=== PATIENT | male | born 1975 | race Native Hawaiian/Other Pacific Islander ===

== ENCOUNTER 2017-02-13 02:02 | Emergency (ER) | payer SELFPAY ==
--- NOTE | 2017-02-13 05:52 | Emergency Department Report ---
ED General Adult HPI - General Chief complaint: Skin Rash Stated complaint: RASH TO GROIN Time Seen by Provider: 02/13/17 04:04 Source: patient Mode of arrival: Ambulatory Limitations: No Limitations - History of Present Illness Initial comments: 41 yo male who comes in today due to a generalized rash in his groin and scrotal area times 10 years. He states that he has been treated for this in the past with creams, however it always returns. He's requesting antibiotics and a cream to treat his complaint. -: year(s) (10) Location: genitals Radiation: non-radiation Quality: burning Consistency: intermittent Improves with: medication Worsens with: none Treatments Prior to Arrival: none - Related Data Allergies Allergy/AdvReac Type Severity Reaction Status Date / Time No Known Allergies Allergy Unverified 02/13/17 02:44 ED Review of Systems ROS: Stated complaint: RASH TO GROIN Other details as noted in HPI Constitutional: denies: chills, fever Eyes: denies: eye pain, eye discharge, vision change ENT: denies: ear pain, throat pain Respiratory: denies: cough, shortness of breath, wheezing Cardiovascular: denies: chest pain, palpitations Endocrine: no symptoms reported Gastrointestinal: denies: abdominal pain, nausea, diarrhea Genitourinary: as per HPI Musculoskeletal: denies: back pain, joint swelling, arthralgia Skin: as per HPI Neurological: denies: headache, weakness, paresthesias Psychiatric: denies: anxiety, depression ED Past Medical Hx - Past Medical History Previous Medical History?: No - Surgical History Past Surgical History?: No - Social History Smoking Status: Never Smoker Substance Use Type: None ED Physical Exam - General Limitations: No Limitations General appearance: alert, in no apparent distress - Head Head exam: Present: atraumatic, normocephalic - Eye Eye exam: Present: normal appearance - ENT ENT exam: Present: mucous membranes moist - Respiratory Respiratory exam: Present: normal lung sounds bilaterally. Absent: respiratory distress - Cardiovascular Cardiovascular Exam: Present: regular rate, normal rhythm. Absent: systolic murmur, diastolic murmur, rubs, gallop - exam: Present: normal inspection - Back Exam Back exam: Present: normal inspection - Neurological Exam Neurological exam: Present: alert, oriented X3 - Psychiatric Psychiatric exam: Present: normal affect, normal mood - Skin Skin exam: Present: warm, dry, intact, normal color. Absent: rash ED Course Vital Signs 02/13/17 02:44 Temperature 98.4 F Pulse Rate 70 Respiratory 18 Rate Blood Pressure 130/78 O2 Sat by Pulse 99 Oximetry - Reevaluation(s) Reevaluation #1: 02/13/17 05:52 The patient is requesting antibiotics and a cream for a rash present in his groin and genital area. No rash noted on exam. Critical care attestation.: If time is entered above; I have spent that time in minutes in the direct care of this critically ill patient, excluding procedure time. ED Disposition Clinical Impression: Rash Disposition: DC-01 TO HOME OR SELFCARE Is pt being admited?: No Does the pt Need Aspirin: No Condition: Stable Instructions: Acute Rash (ED) Additional Instructions: Upon exam, there wasn't a rash noted on exam. Please follow up with your provider on discharge. Referrals: PRIMARY CARE [Primary Care Provider] - 3-5 Days Time of Disposition: 05:55
[2017-02-13 06:03] VITALS: BP 131/80
== END 2017-02-13 06:03 | disposition home or self-care (01) ==
LOC: ED 02:02
DX: R21 Rash and other nonspecific skin eruption (principal)
CPT/HCPCS: 99282

== ENCOUNTER 2018-01-12 08:30 | Emergency (ER) | payer SELFPAY ==
[2018-01-12 09:17] VITALS: BP 103/61
--- NOTE | 2018-01-12 09:38 | Emergency Department Report ---
Blank Doc - Documentation Documentation: Patient is a 6-year-old male who is complaining of multiple complaints at this time. Patient states he's had a headache for approximately 1 year. Patient also states he has itchiness and feels as though answer crawling on his skin it feels as though he can feel his blood pumping through his veins. Patient occasionally has to take very deep breath as well as. The patient is denying any chest pain or shortness of breath. Patient does seem quite anxious during the history and physical. Patient likely has anxiety and paranoia that something is on his scan however the cause of his symptoms we will establish a baseline that there is no emergent condition present. Patient will have a CMP and CBC and a head CT done here in the emergency department.
[2018-01-12 09:59] LABS: Basophils # (Auto) 0.1 K/mm3 (0.0-0.1); Basophils % (Auto) 1.4 % (0.0-1.8); Eosinophils # (Auto) 0.3 K/mm3 (0.0-0.4); Eosinophils % (Auto) 4.2 % (0.0-4.3); Hematocrit 44.1 % (35.5-45.6); Hemoglobin 15.2 gm/dl (11.8-15.2); Lymphocytes # (Auto) 2.9 K/mm3 (1.2-5.4); Lymphocytes % (Auto) 38.2 % (13.4-35.0); Mean Corpuscular HGB Conc 35 % (32-34); Mean Corpuscular Hemoglobin 31 pg (28-32); Mean Corpuscular Volume 88 fl (84-94); Monocytes # (Auto) 0.7 K/mm3 (0.0-0.8); Monocytes % (Auto) 9.3 % (0.0-7.3); Platelet Count 243 K/mm3 (140-440); Red Blood Count 4.99 M/mm3 (3.65-5.03); Red Cell Distribution Width 13.3 % (13.2-15.2)
--- NOTE | 2018-01-12 10:19 | Cat Scan Report ---
CT HEAD WITHOUT CONTRAST: HISTORY: Headaches. TECHNIQUE: Sequential 2.5mm CT images. COMPARISON: none. FINDINGS: Cerebral Parenchyma: There are focal areas of cortical encephalomalacia in the right anterior temporal lobe, right subfrontal lobe, and anterior frontal lobes. This may be posttraumatic in nature, correlate with the patient's history. The remaining brain parenchyma demonstrates normal attenuation. Cerebellum: Within normal limits. Brainstem: Within normal limits. Ventricles: Normal. Sella: Normal. Extra-axial spaces: Normal. Basal Cisterns: Normal. Intracranial Hemorrhage: None. Midline Shift: None. Calvarium: Normal. Sinuses: Normal. Mastoid Air Cells: Normal. Visualized Orbits: Normal. IMPRESSION: Focal areas of cortical encephalomalacia are identified in the right anterior temporal lobe and both frontal lobes suggesting previous traumatic injury. No acute intracranial process is identified.
[2018-01-12 10:21] LABS: Alanine Aminotransferase 154 units/L (7-56); Albumin 4.5 g/dL (3.9-5); BUN/Creatinine Ratio 24; Blood Urea Nitrogen 19 mg/dL (9-20); Calcium 9.3 mg/dL (8.4-10.2); Hemolysis Index 55
--- NOTE | 2018-01-12 10:33 | Emergency Department Report ---
ED General Adult HPI - General Chief complaint: Headache Stated complaint: HIGH BREATHING Time Seen by Provider: 01/12/18 09:35 Source: patient, family Mode of arrival: Ambulatory Limitations: No Limitations - History of Present Illness Initial comments: This is a 42-year-old male here reports that he has headache that comes and goes and been ongoing for about a year. He said he has intermittent heavy breathing for about a year. Patient reports fungal infection to both feet which is causing the symptoms. He reports that he has had pain 4/10 that is achy and reports some blurred vision, dizziness and fatigue. Denies any nausea or vomiting. Denies any abdominal back pain. Denies any urinary burning, frequency or urgency. Pain is intermittent. He is not having any back pain or dizziness MD Complaint: complaint, multiple Onset/Timin -: year(s) Location: head, back Radiation: non-radiation Severity scale (0 -10): 4 Quality: aching Consistency: intermittent Improves with: none Worsens with: none Associated Symptoms: headaches, rash (fungal infection of his feet), shortness of breath, weakness. denies: confusion, chest pain, cough, diaphoresis, fever/ chills, loss of appetite, malaise, nausea/vomiting, seizure, syncope Treatments Prior to Arrival: none - Related Data Previous Rx's Medication Instructions Recorded Last Taken Type Acetaminophen [Tylenol] 500 mg PO Q12H #12 tablet 01/12/18 Unknown Rx Ketoconazole 2% [Nizoral] 15 gm TP Q12H 7 Days #1 tube 01/12/18 Unknown Rx Allergies Allergy/AdvReac Type Severity Reaction Status Date / Time No Known Allergies Allergy Unverified 02/13/17 02:44 ED Review of Systems ROS: Stated complaint: HIGH BREATHING Other details as noted in HPI Constitutional: denies: chills, fever Eyes: denies: eye pain, eye discharge, vision change ENT: denies: ear pain, throat pain, hearing loss, epistaxis, congestion Respiratory: denies: cough, shortness of breath, SOB with exertion, SOB at rest , stridor, wheezing Cardiovascular: denies: chest pain, palpitations, edema, paroxysmal nocturnal dyspnea Gastrointestinal: denies: abdominal pain, nausea, vomiting, diarrhea, constipation, hematemesis, melena, hematochezia Genitourinary: denies: urgency, dysuria, hematuria, testicular pain, testicular mass Musculoskeletal: denies: back pain, joint swelling, arthralgia Skin: rash. 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 Absent: tenderness, CVA tenderness (R), muscle spasm , paraspinal tenderness, vertebral tenderness, rash noted - Neurological Exam Neurological exam: Present: alert, oriented X3, normal gait, reflexes normal. Absent: motor sensory deficit - Psychiatric Psychiatric exam: Present: normal affect, normal mood - Skin Skin exam: Present: warm, dry, normal color, rash - Expanded Skin Exam Expanded Type of lesion: Present: rash, other (fungal appearing rash) Distribution of rash: other (both feet) Description of rash: Present: other (dry scaly and moist between toes and to some toes on both feet.) ED Course Vital Signs 01/12/18 09:11 Temperature 98.6 F Pulse Rate 65 Respiratory 18 Rate Blood Pressure 103/61 O2 Sat by Pulse 95 Oximetry ED Medical Decision Making - Lab Data Result diagrams: 01/12/18 09:41 01/12/18 09:41 Lab Results 01/12/18 01/12/18 Range/Units 09:41 09:41 WBC 7.5 (4.5-11.0) K/mm3 RBC 4.99 (3.65-5.03) M/mm3 Hgb 15.2 (11.8-15.2) gm/dl Hct 44.1 (35.5-45.6) % MCV 88 (84-94) fl MCH 31 (28-32) pg MCHC 35 H (32-34) % RDW 13.3 (13.2-15.2) % Plt Count 243 (140-440) K/mm3 Lymph % (Auto) 38.2 H (13.4-35.0) % Harrison % (Auto) 9.3 H (0.0-7.3) % Eos % (Auto) 4.2 (0.0-4.3) % Baso % (Auto) 1.4 (0.0-1.8) % Lymph # 2.9 (1.2-5.4) K/mm3 Harrison # 0.7 (0.0-0.8) K/mm3 Eos # 0.3 (0.0-0.4) K/mm3 Baso # 0.1 (0.0-0.1) K/mm3 Seg Neutrophils % 46.9 (40.0-70.0) % Seg Neutrophils # 3.5 (1.8-7.7) K/mm3 Sodium 137 (137-145) mmol/L Potassium 4.0 (3.6-5.0) mmol/L Chloride 100.6 (98-107) mmol/L Carbon Dioxide 22 (22-30) mmol/L Anion Gap 18 mmol/L BUN 19 (9-20) mg/dL Creatinine 0.8 (0.8-1.5) mg/dL Estimated GFR > 60 ml/min BUN/Creatinine Ratio 24 % Glucose 115 H (75-100) mg/dL Calcium 9.3 (8.4-10.2) mg/dL Total Bilirubin 0.80 (0.1-1.2) mg/dL AST 99 H (5-40) units/L ALT 154 H (7-56) units/L Alkaline Phosphatase 94 (35-129) units/L Total Protein 7.8 (6.3-8.2) g/dL Albumin 4.5 (3.9-5) g/dL Albumin/Globulin Ratio 1.4 % - Radiology Data Radiology results: report reviewed CT scan of the head and brain without contrast shows no acute intracranial abnormalities. He has signs of traumatic brain injury which patient says that he has had head injury in the past when he was in a coma for months. Patient: NORTH HENDERSON MR#: [id number] : 1975 Acct:[id number] Age/Sex: 42 / M ADM Date: 01/12/18 Loc: ED Attending Dr: Ordering Physician: RAI SOLORZANO MD Date of Service: 01/12/18 Procedure(s): CT head/brain wo con Accession Number(s): [id number] cc: RAI SOLORZANO MD CT HEAD WITHOUT CONTRAST: HISTORY: Headaches. TECHNIQUE: Sequential 2.5mm CT images. COMPARISON: none. FINDINGS: Cerebral Parenchyma: There are focal areas of cortical encephalomalacia in the right anterior temporal lobe, right subfrontal lobe, and anterior frontal lobes. This may be posttraumatic in nature, correlate with the patient's history. The remaining brain parenchyma demonstrates normal attenuation. Cerebellum: Within normal limits. Brainstem: Within normal limits. Ventricles: Normal. Sella: Normal. Extra-axial spaces: Normal. Basal Cisterns: Normal. Intracranial Hemorrhage: None. Midline Shift: None. Calvarium: Normal. Sinuses: Normal. Mastoid Air Cells: Normal. Visualized Orbits: Normal. IMPRESSION: Focal areas of cortical encephalomalacia are identified in the right anterior temporal lobe and both frontal lobes suggesting previous traumatic injury. No acute intracranial process is identified. Transcribed By: TTR Dictated By: JAHAIRA GRESHAM JR, MD Electronically Authenticated By: JAHAIRA GRESHAM JR, MD Signed Date/Time: 01/12/18 1018 DD/ 1016 TD/TT: 01/12/18 1018 - Differential Diagnosis intracranial versus extracranial abnormality, simple headache Critical care attestation.: If time is entered above; I have spent that time in minutes in the direct care of this critically ill patient, excluding procedure time. ED Disposition Clinical Impression: Musculoskeletal pain, Tinea pedis of both feet Headache Qualifiers: Headache type: unspecified Headache chronicity pattern: episodic headache Intractability: not intractable Qualified Code(s): R51 - Headache Disposition: DC-01 TO HOME OR SELFCARE Is pt being admited?: No Does the pt Need Aspirin: No Condition: Stable Instructions: Tinea Pedis (ED), Back Pain (ED), Acute Headache (ED) Additional Instructions: follow-up with outside Medical Center and one to 2 days for primary care visits Follow-up with Dr. Iverson for neurology as you had previous head injury with headache Follow-up with sales person regarding tinea pedis Take antifungal cream to apply to both feet at rest site Tylenol for pain Prescriptions: Acetaminophen [Tylenol] 500 mg PO Q12H #12 tablet Ketoconazole 2% [Nizoral] 15 gm TP Q12H 7 Days #1 tube Referrals: PRIMARY CARE, [Primary Care Provider] - 01/14/18 [facility] [Outside] - 01/14/18 HAYDEE STOKES MD [Staff Physician] - 3-5 Days PAUL IVERSON MD [Staff Physician] - 01/14/18 Forms: Work/School Release Form(ED)
== END 2018-01-12 11:10 | disposition home or self-care (01) ==
LOC: ED 08:30
DX: M79.10 Myalgia, unspecified site (principal); B35.3 Tinea pedis; R51 Headache; H53.8 Other visual disturbances
CPT/HCPCS: 36415; 70450; 80053; 85025

== ENCOUNTER 2019-07-28 12:13 | Emergency (ER) | payer SELFPAY ==
[2019-07-28 12:20] VITALS: BP 117/67
--- NOTE | 2019-07-28 13:47 | Emergency Department Report ---
ED Rash HPI - HPI Chief Complaint: Skin Rash Stated Complaint: RASH Time Seen by Provider: 07/28/19 13:43 Duration: 5 Days Location: Abdomen Rash Symptoms: No Itching, No Facial Swelling, No Tongue/Oral Swelling, No Breathing Difficulties, No Choking Sensation, No Wheezing/Dyspnea, No Peeling, No Blistering, No Fever, No Lightheaded, No Malaise, No Myalgias Severity: mild Other History: 44-year-old male presents to the emergency room complaining of a rash to left side of his stomach that started last Wednesday. Patient reports that it does not hurt does not itch. Patient states that when it started he had some pain but the redness has improved. Patient is unaware of any injury. 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 No distress. Alert and acting appropriately. HEENT: No Periorbital Edema, No Conjuctival Injection, No Chemosis, No Perioral Edema, No Tongue Edema, No Uvular Edema, No Compromised Airway, No Drooling Lungs: Yes Good Air Exchange (Normal Breath Sounds), No Wheezes, No Ronchi, No Stridor, No Cough, No Labored Respirations, No Retractions, No Use of Accessory Muscles, No Other Abnormal Lung Sounds Skin: Yes Maculopapular Rash Other: Positive: Abdomen Normal, Neurologic Normal, Musculoskeletal Normal ED Course Vital Signs 07/28/19 12:17 Temperature 98.1 F Pulse Rate 77 Respiratory 18 Rate Blood Pressure 117/67 [Left] O2 Sat by Pulse 97 Oximetry ED Medical Decision Making - Medical Decision Making 44-year-old male presents to the emergency room complaining of a rash to left side of his stomach that started last Wednesday. Patient reports that it does not hurt does not itch. Patient states that when it started he had some pain but the redness has improved. Patient is unaware of any injury. Patient is afebrile nontoxic in appearance. Will place patient on a 7-day c ourse of Keflex. Critical care attestation.: If time is entered above; I have spent that time in minutes in the direct care of this critically ill patient, excluding procedure time. ED Disposition Clinical Impression: Erythematous rash, Cellulitis Disposition: DC-01 TO HOME OR SELFCARE Is pt being admited?: No Does the pt Need Aspirin: No Condition: Stable Instructions: Acute Rash (ED) Additional Instructions: Complete antibiotics as prescribed. Take ibuprofen or Tylenol as needed for pain management. Prescriptions: cephALEXin [Keflex] 500 mg PO Q12HR 7 Days #14 cap Referrals: PRIMARY CARE, [Primary Care Provider] - 3-5 Days Forms: Work/School Release Form(ED)
== END 2019-07-28 13:50 | disposition home or self-care (01) ==
LOC: ED 12:13
DX: L03.90 Cellulitis, unspecified (principal); L53.9 Erythematous condition, unspecified; Z79.899 Other long term (current) drug therapy
CPT/HCPCS: 99282

== ENCOUNTER 2021-02-01 16:20 | Emergency (ER) | payer SELFPAY ==
[2021-02-01 16:32] VITALS: BP 118/74
[2021-02-01] MEDS ORDERED: SODIUM CHLORIDE 0.9% 1000 ML 1,000 ML IV ONE ×2 (16:50→16:52)
[2021-02-01] MEDS ORDERED: INSULIN REGULAR, HUMAN 100 UNITS/1 ML IV ONE ×2 (16:52→18:05)
--- NOTE | 2021-02-01 16:54 | Emergency Department Report ---
ED General Adult HPI - General Chief complaint: Hyperglycemia Stated complaint: DIABETIC Time Seen by Provider: 02/01/21 16:49 Source: patient Mode of arrival: Ambulatory Limitations: No Limitations - History of Present Illness Initial comments: 45-year-old male patient presents with complaints of elevated glucose levels today. Patient states he had blood work done with his primary care doctor 2 days ago and that he was notified today that his blood sugar was elevated on those labs at 530. Patient states he was diagnosed with diabetes just over 1 month ago and has been taking Metformin twice daily. He admits to being noncompliant with Metformin daily. Patient also states he does not check his blood sugar at home. Patient was noted to be drinking a Sprite in triage. He admits to increased thirst and fatigue. He denies any chest pain or shortness of breath, abdominal pain, nausea/vomiting, fever/chills/sweats, or headache. He has history of hyperlipidemia. He states his next follow-up appointment with his PCP is 02/13/2021. - Related Data Previous Rx's Medication Instructions Recorded Last Taken Type Acetaminophen [Tylenol] 500 mg PO Q12H #12 tablet 01/12/18 Unknown Rx Ketoconazole 2% [Nizoral] 15 gm TP Q12H 7 Days #1 tube 01/12/18 Unknown Rx cephALEXin [Keflex] 500 mg PO Q12HR 7 Days #14 cap 07/28/19 Unknown Rx Allergies Allergy/AdvReac Type Severity Reaction Status Date / Time No Known Allergies Allergy Verified 02/01/21 16:26 ED Review of Systems ROS: Stated complaint: DIABETIC Other details as noted in HPI Constitutional: malaise. denies: chills, diaphoresis, fever, weakness Respiratory: denies: cough, shortness of breath Cardiovascular: denies: chest pain Gastrointestinal: denies: abdominal pain, nausea, vomiting Genitourinary: urgency, frequency. denies: dysuria, hematuria, discharge Skin: denies: rash, lesions, change in color Neurological: denies: headache, numbness, paresthesias ED Past Medical Hx - Past Medical History Hx Diabetes: Yes Additional medical history: coma x1mo due to head trauma per pt/ HIGH CHOLESTROL - Social History Smoking Status: Never Smoker Substance Use Type: None - Medications Home Medications: Home Medications Medication Instructions Recorded Confirmed Last Taken Type Acetaminophen [Tylenol] 500 mg PO Q12H #12 tablet 01/12/18 Unknown Rx Ketoconazole 2% [Nizoral] 15 gm TP Q12H 7 Days #1 tube 01/12/18 Unknown Rx cephALEXin [Keflex] 500 mg PO Q12HR 7 Days #14 cap 07/28/19 Unknown Rx ED Physical Exam - General Limitations: No Limitations General appearance: alert, in no apparent distress - Head Head exam: Present: atraumatic, normocephalic - Eye Eye exam: Present: normal appearance. Absent: scleral icterus - Respiratory Respiratory exam: Present: normal lung sounds bilaterally. Absent: respiratory distress - Cardiovascular Cardiovascular Exam: Present: regular rate, normal rhythm - Back Exam Back exam: Absent: CVA tenderness (R), CVA tenderness (L) - Neurological Exam Neurological exam: Present: alert, oriented X3 - Psychiatric Psychiatric exam: Present: normal affect, normal mood - Skin Skin exam: Present: warm, dry, intact, normal color. Absent: rash ED Course Vital Signs 02/01/21 16:31 Temperature 98.0 F Pulse Rate 91 H Respiratory 18 Rate Blood Pressure 118/74 O2 Sat by Pulse 98 Oximetry ED Medical Decision Making - Lab Data Result diagrams: 02/01/21 17:04 02/01/21 17:04 Lab Results 02/01/21 02/01/21 02/01/21 Range/Units 16:28 17:04 17:04 WBC 7.3 (4.5-11.0) K/mm3 RBC 5.24 H (3.65-5.03) M/mm3 Hgb 15.5 H (11.8-15.2) gm/dl Hct 46.0 H (35.5-45.6) % MCV 88 (84-94) fl MCH 30 (28-32) pg MCHC 34 (32-34) % RDW 12.7 L (13.2-15.2) % Plt Count 233 (140-440) K/mm3 Lymph % (Auto) 40.0 H (13.4-35.0) % Snyder % (Auto) 5.8 (0.0-7.3) % Eos % (Auto) 2.1 (0.0-4.3) % Baso % (Auto) 0.8 (0.0-1.8) % Lymph # (Auto) 2.9 (1.2-5.4) K/mm3 Snyder # (Auto) 0.4 (0.0-0.8) K/mm3 Eos # (Auto) 0.2 (0.0-0.4) K/mm3 Baso # (Auto) 0.1 (0.0-0.1) K/mm3 Seg Neutrophils % 51.3 (40.0-70.0) % Seg Neutrophils # 3.7 (1.8-7.7) K/mm3 VBG pH (7.320-7.420) Sodium 132 L (137-145) mmol/L Potassium 4.0 (3.6-5.0) mmol/L Chloride 91.8 L (98-107) mmol/L Carbon Dioxide 23 (22-30) mmol/L Anion Gap 21 mmol/L BUN 16 (9-20) mg/dL Creatinine 0.8 (0.8-1.3) mg/dL Estimated GFR > 60 ml/min BUN/Creatinine Ratio 20 % Glucose 497 H (75-100) mg/dL POC Glucose 429 H (70-105) mg/dL Calcium 10.8 H (8.4-10.2) mg/dL Total Bilirubin 0.40 (0.1-1.2) mg/dL AST 20 (5-40) units/L ALT 27 (7-56) units/L Alkaline Phosphatase 150 H (35-129) units/L Total Protein 8.2 (6.3-8.2) g/dL Albumin 4.9 (3.9-5) g/dL Albumin/Globulin Ratio 1.5 % Urine Color (Yellow) Urine Turbidity (Clear) Urine pH (5.0-7.0) Ur Specific [place] (1.003-1.030) Urine Protein (Negative) mg/dL Urine Glucose (UA) (Negative) mg/dL Urine Ketones (Negative) mg/dL Urine Blood (Negative) Urine Nitrite (Negative) Urine Bilirubin (Negative) Urine Urobilinogen (<2.0) mg/dL Ur Leukocyte Esterase (Negative) Urine WBC (Auto) (0.0-6.0) /HPF Urine RBC (Auto) (0.0-6.0) /HPF 02/01/21 02/01/21 02/01/21 Range/Units 17:04 17:23 18:50 WBC (4.5-11.0) K/mm3 RBC (3.65-5.03) M/mm3 Hgb (11.8-15.2) gm/dl Hct (35.5-45.6) % MCV (84-94) fl MCH (28-32) pg MCHC (32-34) % RDW (13.2-15.2) % Plt Count (140-440) K/mm3 Lymph % (Auto) (13.4-35.0) % Snyder % (Auto) (0.0-7.3) % Eos % (Auto) (0.0-4.3) % Baso % (Auto) (0.0-1.8) % Lymph # (Auto) (1.2-5.4) K/mm3 Snyder # (Auto) (0.0-0.8) K/mm3 Eos # (Auto) (0.0-0.4) K/mm3 Baso # (Auto) (0.0-0.1) K/mm3 Seg Neutrophils % (40.0-70.0) % Seg Neutrophils # (1.8-7.7) K/mm3 VBG pH 7.351 (7.320-7.420) Sodium (137-145) mmol/L Potassium (3.6-5.0) mmol/L Chloride (98-107) mmol/L Carbon Dioxide (22-30) mmol/L Anion Gap mmol/L BUN (9-20) mg/dL Creatinine (0.8-1.3) mg/dL Estimated GFR ml/min BUN/Creatinine Ratio % Glucose (75-100) mg/dL POC Glucose 365 H (70-105) mg/dL Calcium (8.4-10.2) mg/dL Total Bilirubin (0.1-1.2) mg/dL AST (5-40) units/L ALT (7-56) units/L Alkaline Phosphatase (35-129) units/L Total Protein (6.3-8.2) g/dL Albumin (3.9-5) g/dL Albumin/Globulin Ratio % Urine Color Straw (Yellow) Urine Turbidity Clear (Clear) Urine pH 6.0 (5.0-7.0) Ur Specific [place] 1.031 H (1.003-1.030) Urine Protein <15 mg/dl (Negative) mg/dL Urine Glucose (UA) >=500 (Negative) mg/dL Urine Ketones 20 (Negative) mg/dL Urine Blood Neg (Negative) Urine Nitrite Neg (Negative) Urine Bilirubin Neg (Negative) Urine Urobilinogen < 2.0 (<2.0) mg/dL Ur Leukocyte Esterase Neg (Negative) Urine WBC (Auto) < 1.0 (0.0-6.0) /HPF Urine RBC (Auto) 2.0 (0.0-6.0) /HPF 02/01/21 Range/Units 19:36 WBC (4.5-11.0) K/mm3 RBC (3.65-5.03) M/mm3 Hgb (11.8-15.2) gm/dl Hct (35.5-45.6) % MCV (84-94) fl MCH (28-32) pg MCHC (32-34) % RDW (13.2-15.2) % Plt Count (140-440) K/mm3 Lymph % (Auto) (13.4-35.0) % Snyder % (Auto) (0.0-7.3) % Eos % (Auto) (0.0-4.3) % Baso % (Auto) (0.0-1.8) % Lymph # (Auto) (1.2-5.4) K/mm3 Snyder # (Auto) (0.0-0.8) K/mm3 Eos # (Auto) (0.0-0.4) K/mm3 Baso # (Auto) (0.0-0.1) K/mm3 Seg Neutrophils % (40.0-70.0) % Seg Neutrophils # (1.8-7.7) K/mm3 VBG pH (7.320-7.420) Sodium (137-145) mmol/L Potassium (3.6-5.0) mmol/L Chloride (98-107) mmol/L Carbon Dioxide (22-30) mmol/L Anion Gap mmol/L BUN (9-20) mg/dL Creatinine (0.8-1.3) mg/dL Estimated GFR ml/min BUN/Creatinine Ratio % Glucose (75-100) mg/dL POC Glucose 311 H (70-105) mg/dL Calcium (8.4-10.2) mg/dL Total Bilirubin (0.1-1.2) mg/dL AST (5-40) units/L ALT (7-56) units/L Alkaline Phosphatase (35-129) units/L Total Protein (6.3-8.2) g/dL Albumin (3.9-5) g/dL Albumin/Globulin Ratio % Urine Color (Yellow) Urine Turbidity (Clear) Urine pH (5.0-7.0) Ur Specific [place] (1.003-1.030) Urine Protein (Negative) mg/dL Urine Glucose (UA) (Negative) mg/dL Urine Ketones (Negative) mg/dL Urine Blood (Negative) Urine Nitrite (Negative) Urine Bilirubin (Negative) Urine Urobilinogen (<2.0) mg/dL Ur Leukocyte Esterase (Negative) Urine WBC (Auto) (0.0-6.0) /HPF Urine RBC (Auto) (0.0-6.0) /HPF - Medical Decision Making 45-year-old male patient presents with complaints of elevated glucose levels today. Patient states he had blood work done with his primary care doctor 2 days ago and that he was notified today that his blood sugar was elevated on those labs at 530. Patient states he was diagnosed with diabetes just over 1 month ago and has been taking Metformin twice daily. He admits to marleny keen noncompliant with Metformin daily. Patient also states he does not check his blood sugar at home. Patient was noted to be drinking a Sprite in triage. He admits to increased thirst and fatigue. He denies any chest pain or shortness of breath, abdominal pain, nausea/vomiting, fever/chills/sweats, or headache. He has history of hyperlipidemia. He states his next follow-up appointment with his PCP is 02/13/2021. Initial glucose in the upper 400s. After 2 L of saline and 11 units of IV insulin, glucose now 311. Labs are otherwise unremarkable and venous pH is normal. Patient is well-appearing and denies any current complaints. He states he is feeling well and vitals are within normal limits. He is stable for discharge home. Patient to restart his Metformin and we discussed in great detail the importance of compliance with Metformin twice daily. Also discussed diabetic diet changes and follow-up with his primary care doctor in 3 to 5 days. Strict return precautions were discussed in detail, patient verbalized understanding. Critical care attestation.: If time is entered above; I have spent that time in minutes in the direct care of this critically ill patient, excluding procedure time. ED Disposition Clinical Impression: Hyperglycemia Disposition: 01 HOME / SELF CARE / HOMELESS Is pt being admited?: No Condition: Stable Instructions: Tips for Eating Away From Home If You Have Diabetes, Type 2 Diabetes Mellitus, Self Care, Adult, Diabetes Mellitus and Exercise, Diabetes Mellitus and Nutrition, Adult Referrals: PRIMARY CARE,MD [Primary Care Provider] - 3-5 Days
[2021-02-01 17:43] LABS: Basophils # (Auto) 0.1 K/mm3 (0.0-0.1); Basophils % (Auto) 0.8 % (0.0-1.8); Eosinophils # (Auto) 0.2 K/mm3 (0.0-0.4); Eosinophils % (Auto) 2.1 % (0.0-4.3); Hemoglobin 15.5 gm/dl (11.8-15.2); Lymphocytes # (Auto) 2.9 K/mm3 (1.2-5.4); Mean Corpuscular HGB Conc 34 % (32-34); Mean Corpuscular Volume 88 fl (84-94); Monocytes # (Auto) 0.4 K/mm3 (0.0-0.8); Monocytes % (Auto) 5.8 % (0.0-7.3); Platelet Count 233 K/mm3 (140-440); Red Blood Count 5.24 M/mm3 (3.65-5.03); Red Cell Distribution Width 12.7 % (13.2-15.2)
[2021-02-01 17:44] LABS: Bilirubin,Urine NEG (Negative); Blood,Urine NEG (Negative); Color,Urine Straw (Yellow); Protein,Urine <15 mg/dL mg/dL (Negative); Urobilinogen,Urine < 2.0 mg/dL (<2.0); WBC,Urine < 1.0 /HPF (0.0-6.0)
[2021-02-01 17:55] LABS: Alanine Aminotransferase 27 units/L (7-56); Albumin 4.9 g/dL (3.9-5); BUN/Creatinine Ratio 20; Blood Urea Nitrogen 16 mg/dL (9-20); Calcium 10.8 mg/dL (8.4-10.2); Hemolysis Index 9
== END 2021-02-01 20:15 | disposition home or self-care (01) ==
LOC: ED 16:20
DX: E11.65 Type 2 diabetes mellitus with hyperglycemia (principal); Z79.899 Other long term (current) drug therapy
CPT/HCPCS: 36415; 80053; 81001; 82805; 82962; 85025; 96361; 96374; 99283; J7030; J1815